=== PATIENT | female | born 1980 | race Caucasian/White ===

== ENCOUNTER 2018-04-15 15:58 | Emergency (ER) | payer MEDICAID ==
[~2018-04-15] VITALS: Ht 167.6 cm; Wt 87.5 kg
[2018-04-15 16:04] VITALS: Ht 167.6 cm; Wt 87.5 kg
[2018-04-15 19:02] VITALS: BP 110/64
== END 2018-04-15 19:02 | disposition home or self-care (01) ==
LOC: ED 15:58
DX: T78.3XXA Angioneurotic edema, initial encounter (principal); Z88.8 Allergy status to other drugs, medicaments and biological substances
CPT/HCPCS: J1100; J7030; Q0163